=== PATIENT | female | born 1955 | race Caucasian/White ===

== ENCOUNTER 2017-10-08 14:39 | Emergency (ER) | payer OTHER ==
[~2017-10-08] VITALS: Ht 154.9 cm; Wt 68.5 kg
[2017-10-08 14:43] VITALS: BP 130/85
--- NOTE | 2017-10-08 14:47 | NUR ---
PT AMBULATED TO BED 8.
--- NOTE | 2017-10-08 14:50 | NUR ---
RIGHT ANKLE PAIN X1 WEEK AND 1 HALF; STATES SHE WAS COMING DOWN SOME STEPS BUT DENIES INJURY OR FALL. HX ARTHRITIS, HTN.
[2017-10-08] MEDS ORDERED: IBUPROFEN 600 MG TAB PO ONE (15:10)
[2017-10-08] MEDS ORDERED: IBUPROFEN 800 MG TAB ONE (15:41)
[2017-10-08 17:09] VITALS: BP 130/85
== END 2017-10-08 17:10 | disposition home or self-care (01) ==
LOC: MED 14:39
DX: S93.401A Sprain of unspecified ligament of right ankle, initial encounter (principal); S93.601A Unspecified sprain of right foot, initial encounter; M77.31 Calcaneal spur, right foot; Z88.0 Allergy status to penicillin; I10 Essential (primary) hypertension; X50.0XXA Overexertion from strenuous movement or load, initial encounter; Y93.89 Activity, other specified; Y99.8 Other external cause status; Y92.89 Other specified places as the place of occurrence of the external cause
CPT/HCPCS: 29515; 73610; 73620; 99284; Q0092

== ENCOUNTER 2017-10-11 10:38 | Emergency (ER) | payer OTHER ==
[~2017-10-11] VITALS: Ht 154.9 cm; Wt 68.5 kg
[2017-10-11 10:43] VITALS: BP 155/67
--- NOTE | 2017-10-11 10:47 | NUR ---
PT AMBULATED TO ER BED 02
--- NOTE | 2017-10-11 10:55 | NUR ---
62 YO F BIB SELF W/ C/O RIGHT FOOT PAIN 10/10 THAT RADIATES FROM HER RIGHT FOOT TO HER RIGHT CALF WHEN SHE PLACES WEIGHT ONTO IT. PT REPORTS THAT SHE WAS IN THIS ER ON TUESDAY FOR THE SAME COMPLAINT AND GIVEN PO MEDS THAT DID NOT HELP HER. PT AAOX4. [facility]CS 15. CMS INTACT. RR EVEN AND UNLABORED. LUNGS BILATRALLY CLEAR. ABD SOFT, NON-TENDER. DENIES N/V/D/FEVER. ER MD SECHRIST NOTIFIED. PT NEEDS MET. SAFETY PRECAUTIONS IN PLACE. WILL CONTINUE TO MONITOR.
[2017-10-11 11:24] VITALS: BP 155/67
--- NOTE | 2017-10-11 11:25 | NUR ---
Patient discharged with v/s stable. Written and verbal after care instructions given and explained. Patient verbalized understanding. Ambulatory with steady gait. All questions addressed prior to discharge. Advised to follow up with PMD.
== END 2017-10-11 11:25 | disposition home or self-care (01) ==
LOC: MED 10:38
DX: S93.401A Sprain of unspecified ligament of right ankle, initial encounter (principal); I10 Essential (primary) hypertension; M19.90 Unspecified osteoarthritis, unspecified site; Z88.0 Allergy status to penicillin; X58.XXXA Exposure to other specified factors, initial encounter; Y93.89 Activity, other specified; Y99.8 Other external cause status; Y92.89 Other specified places as the place of occurrence of the external cause
CPT/HCPCS: 99282